=== PATIENT | male | born 1960 | race Caucasian/White ===

== ENCOUNTER → 2016-04-22 | Outpatient (CLI) | payer BC ==
[~2016-04-22] MED LIST: AMOXICILLIN 8751 TAB PO; ESKALITH C450 MG/TAB PO; LITHIUM CA150 MG/CAP PO; LITHIUM CARBON450 MG PO; NORCO 325 MG-51 TAB PO; SEROQUEL 2525 MG/TAB PO
== END ==
LOC: BHSO 15:38
DX: F31.81 Bipolar II disorder (principal)

== ENCOUNTER 2016-05-08 12:38 | Emergency (ER) | payer BC ==
[~2016-05-08] VITALS: Ht 172.7 cm; Wt 68.2 kg
[~2016-05-08 12:38] MED LIST changes: -ESKALITH C450 MG/TAB PO; -LITHIUM CA150 MG/CAP PO
[2016-05-08 12:40] VITALS: TEMP 96.9
[2016-05-08] MEDS ORDERED: LITHIUM CA150 MG/CAP PO (12:44)
[2016-05-08] MEDS ORDERED: ESKALITH C450 MG/TAB PO (13:07)
[2016-05-08 13:24] LABS: BASO % 0.2 % (0.0-2.0); EOS % 0.3 % (0-4.0); GRAN # 10.2 (1.4-6.5); GRAN % 84.9 % (42.2-75.2); HEMATOCRIT 37.2 % (42.0-52.0); HEMOGLOBIN 12.6 g/dl (13.5-18.0); LYMPH # 0.7 (1.2-3.4); MEAN CELL VOLUME 97 fl (80.0-100.0); MEAN CORPUSCULAR HEMOGLOBIN 33 pg (27.0-31.0); MEAN CORPUSCULAR HGB CONC 34 g/dl (33.0-37.0); MEAN PLATELET VOLUME 8.9 fl (7.4-10.4); MONO % 7.9 % (1.7-9.3); PLATELET COUNT 225 K/mm3 (130-400); RED BLOOD COUNT 3.84 M/mm3 (4.20-5.60); REDCELL DISTRIBUTION WIDTH-CV 11.9 % (11.5-14.5)
[2016-05-08 13:35] LABS: ADJUSTED CALCIUM 9.1 mg/dL (8.4-10.2); ALBUMIN 3.5 gm/dL (3.5-5.0); BILIRUBIN,TOTAL 0.6 mg/dL (0.0-1.0); CALCIUM 8.7 mg/dL (8.4-10.2); CREATININE, serum 1.19 mg/dL (0.66-1.25); POTASSIUM 4.1 mmol/L (3.4-5.0); TOTAL PROTEIN 6.5 gm/dL (6.4-8.2)
[2016-05-08 13:38] LABS: PROTHROMBIN TIME 11.6 SECONDS (9.7-12.8)
[2016-05-08 13:40] LABS: PARTIAL THROMBOPLASTIN TIME 26.4 SECONDS (26.0-37.0)
[2016-05-08 14:03] LABS: LITHIUM 1.4 mmol/L (0.6-1.2)
[2016-05-08 14:40] LABS: PH 6 (5-8); SQUAMOUS EPITHELIAL None Seen /hpf; URINE APPEARANCE Clear; URINE BACTERIA None Seen /hpf; URINE BILIRUBIN Negative (NEGATIVE); URINE BLOOD Negative (NEGATIVE); URINE COLOR Yellow; URINE GLUCOSE Negative (NEGATIVE); URINE KETONE Negative (NEGATIVE); URINE RBC 0-2 /hpf; URINE UROBILINOGEN Negative (NEGATIVE); URINE WBC 0-2 /hpf
[2016-05-08 15:28] VITALS: BP 106/65; PULSE 96
== END 2016-05-08 15:35 | disposition short-term general hospital (02) ==
LOC: COL.ER 12:38
PROVIDERS: Emergency Medicine
DX: S36.892A Contusion of other intra-abdominal organs, initial encounter (principal); I95.89 Other hypotension; S32.029A Unspecified fracture of second lumbar vertebra, initial encounter for closed fracture; S22.32XA Fracture of one rib, left side, initial encounter for closed fracture; W17.89XA Other fall from one level to another, initial encounter; W22.8XXA Striking against or struck by other objects, initial encounter; Y93.H9 Activity, other involving exterior property and land maintenance, building and construction
CPT/HCPCS: J2405; J3010; J7030; P9016; Q9967

== ENCOUNTER → 2016-05-21 | Outpatient (CLI) | payer BC ==
[~2016-05-21] MED LIST changes: +ESKALITH C450 MG/TAB PO; +LITHIUM CA150 MG/CAP PO
== END ==
LOC: COL.RAD 11:02
DX: N50.812 Left testicular pain (principal); N50.811 Right testicular pain; Z87.828 Personal history of other (healed) physical injury and trauma

== ENCOUNTER → 2017-02-25 | Outpatient (CLI) | payer BC | LOC: BHSO 13:54 | DX: F31.73 Bipolar disorder, in partial remission, most recent episode manic (principal) ==

== ENCOUNTER 2017-04-01 05:34 | Day surgery (SDC) | payer BC ==
[~2017-04-01] VITALS: Ht 170.2 cm; Wt 69.0 kg
[2017-04-01 06:15] VITALS: BP 119/72; PULSE 75; TEMP 97.3
[2017-04-01 07:18] LABS: BASO % 0.2 % (0.0-2.0); EOS # 0.2 (0.0-0.7); EOS % 3.9 % (0-4.0); GRAN # 2.7 (1.4-6.5); GRAN % 61.3 % (42.2-75.2); HEMATOCRIT 39.9 % (42.0-52.0); LYMPH # 1.1 (1.2-3.4); LYMPH % 25.6 % (20.0-51.0); MEAN CELL VOLUME 98 fl (80.0-100.0); MEAN CORPUSCULAR HEMOGLOBIN 32 pg (27.0-31.0); MEAN CORPUSCULAR HGB CONC 33 g/dl (33.0-37.0); MEAN PLATELET VOLUME 8.4 fl (7.4-10.4); MONO # 0.4 (0.1-0.6); MONO % 8.8 % (1.7-9.3); PLATELET COUNT 196 K/mm3 (130-400); RED BLOOD COUNT 4.08 M/mm3 (4.20-5.60); WHITE BLOOD COUNT 4.4 K/mm3 (4.8-10.8)
[2017-04-01 07:28] LABS: ADJUSTED CALCIUM 9.2 mg/dL (8.4-10.2); ALBUMIN 3.8 gm/dL (3.5-5.0); BILIRUBIN,TOTAL 0.7 mg/dL (0.0-1.0); CREATININE, serum 0.82 mg/dL (0.66-1.25); POTASSIUM 4.2 mmol/L (3.4-5.0); TOTAL PROTEIN 6.6 gm/dL (6.4-8.2)
[2017-04-01 07:41] LABS: LITHIUM 1.3 mmol/L (0.6-1.2)
[2017-04-01 07:59] LABS: THYROID STIMULATING HORMONE 1.62 uIU/mL (0.465-4.680)
[2017-04-01] MEDS ORDERED: NORCO 325 MG-51 TAB PO (08:21)
[2017-04-01 08:25] VITALS: BP 113/38; PULSE 71; TEMP 98.8
[2017-04-01 08:30] VITALS: BP 118/72; PULSE 83
[2017-04-01 08:45] VITALS: BP 147/102; PULSE 70
[2017-04-01 09:00] VITALS: BP 122/69; PULSE 61
== END 2017-04-01 09:30 | disposition home or self-care (01) ==
LOC: SDCO 05:34
PROVIDERS: Psychiatry & Neurology Psychiatry
DX: K40.90 Unilateral inguinal hernia, without obstruction or gangrene, not specified as recurrent (principal); G89.18 Other acute postprocedural pain; F31.9 Bipolar disorder, unspecified; Z80.0 Family history of malignant neoplasm of digestive organs
CPT/HCPCS: C1781; J0171; J0690; J1100; J1885; J2250; J2405; J2704; J2795; J3010; J7120

== ENCOUNTER → 2017-11-04 | Outpatient (CLI) | payer BC | LOC: BHSO 12:52 | DX: F31.81 Bipolar II disorder (principal) | CPT/HCPCS: G0463 ==

== ENCOUNTER → 2018-04-27 | Outpatient (CLI) | payer BC ==
[2018-04-27 11:08] LABS: CHOLESTEROL RISK RATIO 4.5
[2018-04-27 11:16] LABS: LITHIUM 0.3 mmol/L (0.6-1.2)
== END ==
LOC: COL.LAB 10:25
PROVIDERS: Psychiatry & Neurology Psychiatry
DX: Z79.899 Other long term (current) drug therapy (principal)

== ENCOUNTER → 2019-11-08 | Outpatient (CLI) | payer BC | LOC: ZCOL.LAB 17:24 | DX: R50.9 Fever, unspecified (principal); Z20.828 Contact with and (suspected) exposure to other viral communicable diseases ==

== ENCOUNTER 2020-02-22 02:23 | Emergency (ER) | payer BC ==
[2020-02-22 03:33] LABS: BASO % 0.1 % (0.0-2.0); EOS # 0.1 (0.0-0.7); EOS % 1.7 % (0-4.0); GRAN # 5.7 (1.4-6.5); GRAN % 81.6 % (42.2-75.2); HEMOGLOBIN 13.7 g/dl (13.5-18.0); LYMPH # 0.5 (1.2-3.4); LYMPH % 7.5 % (20.0-51.0); MEAN CELL VOLUME 92 fl (80.0-100.0); MEAN CORPUSCULAR HEMOGLOBIN 32 pg (27.0-31.0); MEAN CORPUSCULAR HGB CONC 34 g/dl (33.0-37.0); MEAN PLATELET VOLUME 8.5 fl (7.4-10.4); MONO # 0.6 (0.1-0.6); MONO % 8.5 % (1.7-9.3); PLATELET COUNT 199 K/mm3 (130-400); RED BLOOD COUNT 4.34 M/mm3 (4.20-5.60); REDCELL DISTRIBUTION WIDTH-CV 11.8 % (11.5-14.5)
[2020-02-22 03:45] LABS: BILIRUBIN,TOTAL 0.3 mg/dL (0.0-1.0); CALCIUM 8.7 mg/dL (8.4-10.2); CREATININE, serum 1.03 (0.66-1.25); POTASSIUM 4.5 mmol/L (3.4-5.0); TOTAL PROTEIN 7.2 gm/dL (6.4-8.2)
[2020-02-22 04:34] VITALS: TEMP 101.4
[2020-02-22 05:34] LABS: ARTERIAL BLD GAS O2 SATURATION 96.7 % (92-100); ARTERIAL BLD GAS TCO2 CT 21.4; ARTERIAL BLOOD GAS HCO3 20.4 meq/L (22-26); ARTERIAL BLOOD GAS PCO2 31.7 mmHg (35-45); ARTERIAL BLOOD GAS pH 7.43 (7.35-7.45)
[2020-02-22] MEDS ORDERED: TESSALON P100 MG/CAP PO (05:35)
[2020-02-22 06:15] VITALS: BP 103/77; PULSE 90
== END 2020-02-22 06:15 | disposition home or self-care (01) ==
LOC: COL.ER 02:23
PROVIDERS: Emergency Medicine
DX: U07.1 COVID-19 (principal); F31.9 Bipolar disorder, unspecified
CPT/HCPCS: J7030

== ENCOUNTER 2021-11-30 16:54 | Emergency (ER) | payer SELFPAY ==
[~2021-11-30] VITALS: Ht 167.6 cm; Wt 56.8 kg
[~2021-11-30 16:54] MED LIST changes: +TESSALON P100 MG/CAP PO
[2021-11-30 18:30] VITALS: BP 155/83; PULSE 88; TEMP 89.2
== END 2021-11-30 18:21 | disposition short-term general hospital (02) ==
LOC: COL.ER 16:54
DX: S45.902A Unspecified injury of unspecified blood vessel at shoulder and upper arm level, left arm, initial encounter (principal); W31.2XXA Contact with powered woodworking and forming machines, initial encounter
CPT/HCPCS: J2270; J3010

== ENCOUNTER → 2023-06-09 | Outpatient (CLI) | payer BC | LOC: COL.CARD 09:18 | DX: R56.9 Unspecified convulsions (principal) ==